=== PATIENT | male | born 1940 | race Caucasian/White ===

== ENCOUNTER 2018-07-02 19:48 | Emergency (ER) | payer MEDICARE, BC, SELFPAY ==
[2018-07-02] VITALS (9 sets, daily range): BP systolic 123–133; BP diastolic 66–70; PULSE 55–62; RESP 15–31; TEMP 37.1; O2SAT 93–96
--- NOTE | 2018-07-02 20:30 | DI.RAD_ITS ---
SYMPTOMS/DIAGNOSIS: LEFT ANKLE PAIN, FEET SWELLING; FEVER, COUGH PA AND LATERAL CHEST: There are no prior comparison exams. The heart size is normal. The aorta is tortuous. A pacemaker is noted. The lungs appear clear. No infiltrate, effusion or pulmonary edema is seen. No thoracic compression fractures are identified. IMPRESSION: No acute abnormality. LEFT ANKLE: There is no evidence of fracture. The talar dome appears intact. There is narrowing of the tibiotalar joint, greater medially, and periarticular spurring. Spurring is also seen at the posterior talocalcaneal joint. No bony erosions are identified. IMPRESSION: Degenerative changes.
--- NOTE | 2018-07-02 20:37 | ED.GENADUL_ITS ---
Discharge Plan Discharge Details Chief Complaint: GenMedical Clinical Impression: Fever, Ankle pain, left Reason For Visit: FEET SWELLING/NOT FEELING GOOD Primary Care Provider: NONE,NONE ED Provider: Uriel Osman Disposition Patient Disposition: HOME Condition: Good Home Meds and New Rx's Prescriptions: Continue atorvastatin [Lipitor] 80 MG tablet 80 mg PO HS RF: 0 candesartan [Atacand] 4 MG tablet 8 mg PO DAILY RF: 0 clopidogrel [Plavix] 75 MG tablet 75 mg PO DAILY RF: 0 metoprolol succinate 25 MG tablet extended release 24 hr 25 mg PO DIRECTED RF: 0 aspirin [Aspir-81] 81 mg Tablet,Delayed Release (Dr/Ec) 81 mg PO DAILY RF: 0 Discharge Instructions Instructions: Fever in Adults (ED) Additional Instructions: You may use Tylenol for pain and fever. Continue your other medications as before. Watch for increasing pain, redness, swelling, warmth to the ankle, confusion, shortness of breath, abdominal pain. Return if any significant changes. Follow-up with primary care in the next few days if you are not feeling better. Referrals: Primary Care Provider [Outside] - 3 days (Follow up with your primary care if not feeling better in the next few days.) Medical Decision Making MDM Narrative Medical decision making narrative: Patient with complaint of left ankle pain, subjective fever, chills. At this time he looks well. His ankle is not significantly swollen. It is not warm or red. Mildly tender to palpation posterior to both malleoli. He is a little decreased active range of motion but normal passive range of motion. His exam is otherwise unremarkable. He ambulated in ok. I doubt that he has a septic joint at this point. Will go ahead and check CBC, chemistries, chest x-ray, urinalysis. Will obtain a left ankle film. Will get blood cultures to complaint of shaking chills a few hours ago. However he looks well at this time. At discharge, patient continues to have no new complaints. Continues to look well. He remains afebrile. Laboratory studies and x-rays were unremarkable. He was given Tylenol for his ankle pain. Will continue Tylenol as needed for pain and fever. Return to ED for increasing pain, swelling, redness, warmth to the ankle, increasing shortness of breath, confusion, abdominal pain, other changes. Otherwise follow-up with primary care in the next few days if not feeling better. Imaging Data Radiologic Study: Imaging: X-Ray (CXR) My impression: negative Radiologist's impression: negative Radiologic Study #2: Imaging: X-Ray (Left Ankle) My impression: arthritis Radiologist's impression: arthritis; mild soft tissue swelling Lab Data Lab results reviewed: Yes I reviewed the patient's lab results. Lab results narrative: There are no significant lab abnormalities. Patient's white count is normal. Urinalysis is negative. HPI - General Adult General Mode of arrival: ambulatory . Date/Time Provider Initiated Documentation: 07/02/18 20:05 . Limitations to Documentation: no limitations . Information obtained by: patient and family . HPI Narrative-FOR DICTATION ONLY HPI Narrative: Patient presents to ED with complaint of fever and chills. Patient reports developing some left ankle pain yesterday without injury. It has bothered him throughout the day but seems to wax and wane in terms of intensity. He is able to still walk on it. This afternoon he started to feel tired and unwell. He developed a subjective fever with some shaking chills. This has subsequently resolved. He has no other symptoms. His was concerned and he came in for evaluation. He has a little bit of a cough but feels like he has been getting over some bronchitis. He denies any type of chest pain or shortness of breath. He denies any urinary symptoms. He denies any GI symptoms or abdominal pain. He denies any rash, myalgias, arthralgias other than left ankle discomfort. Related Data Home Medications Medication Instructions Recorded Confirmed atorvastatin [Lipitor] 80 mg PO HS 09/06/13 07/02/18 candesartan [Atacand] 8 mg PO DAILY 09/06/13 07/02/18 clopidogrel [Plavix] 75 mg PO DAILY 09/06/13 07/02/18 metoprolol succinate 25 mg PO DIRECTED 09/06/13 07/02/18 aspirin [Aspir-81] 81 mg PO DAILY 07/02/18 07/02/18 Allergies Allergy/AdvReac Type Severity Reaction Status Date / Time No Known Allergies Allergy Unverified 07/02/18 20:31 General Stated Complaint: GenMedical YOHAN: 3 Review of Systems Constitutional Reports chills, Reports fever(s) (subjective), Denies headache(s), Reports malaise and Denies weakness ENT Denies otalgia, Denies headache(s), Denies nasal congestion, Denies nasal discharge and Denies sore throat Cardiovascular Denies chest pain, Denies lightheadedness, Denies palpitations and Denies dyspnea Respiratory Reports cough, Denies pain on inspiration, Denies pain with cough, Denies dyspnea and Denies wheezing Gastrointestinal Denies abdominal pain, Denies diarrhea, Denies nausea and Denies vomiting Genitourinary Denies hematuria, Denies difficulty urinating, Denies flank pain and Denies urinary frequency Musculoskeletal Denies back pain, Denies myalgias, Reports arthralgias (left ankle) and Denies numbness Integumentary/Breasts Denies erythema and Denies rash Neurologic Denies confusion, Denies headache(s), Denies focal weakness, Denies numbness and Denies weakness Psychiatric Denies confusion Endocrine Denies palpitations Allergic/Immunologic Denies wheezing PFSH Medical History CAD (coronary artery disease) (Chronic) HTN (hypertension) (Chronic) Hypercholesterolemia (Chronic) Prostate cancer (Chronic) S/P prostatectomy (Chronic) Social History Smoking/Tobacco Use Status: Former Tobacco Use Surgical History AICD (automatic cardioverter/defibrillator) present (Chronic) History of heart artery stent (Chronic) Exam Const General: healthy appearing, comfortable and no acute distress Orientation: alert and oriented x3 HENAZ Head: normocephalic and atraumatic Mouth: moist mucous membranes Neck Neck: supple Resp Effort & Inspection: normal respiratory effort Auscultation: clear to auscultation bilaterally Cardio Rate: regular rate Rhythm: regular rhythm Heart Sounds: S1 normal and S2 normal GI Palpation: soft, no guarding and nontender Back/Spine/Pelvis Back: no CVA tenderness Skin General skin exam: no erythema Rashes: no rashes Neuro General: alert, oriented x3, no focal motor deficits and CN's II-XI intact bilaterally Extrem General: normal exam except as noted Left lower extremity: ankle (left ankle with some tenderness to palpation posterior to malleoli; some decreased active ROM but normal passive ROM); no edema
[2018-07-02 21:13] LABS: Abs Immature Grans 0.02 k/cumm (0.0-0.09); Absolute Basophil Count 0.04 k/cumm (0.0-0.2); Absolute Eosinophil Count 0.24 k/cumm (0.0-0.7); Absolute Lymphocyte Count 1.27 k/cumm (1.2-3.4); Absolute Monocyte Count 1.14 k/cumm (0.11-0.7); Absolute Neutrophil Count 6.02 k/cumm (1.2-6.7); Basophils % 0.5; Eosinophils % 2.7; HCT 46.2 % (40.0-50.0); HGB 15.5 g/dL (13.5-17.5); Immature Grans % 0.2; Lymphocytes % 14.5; Mean Corp. HGB Concentration 33.5 g/dL (32.0-36.0); Mean Corpuscular Hemoglobin 28.8 pg (27.0-33.0); Mean Corpuscular Volume 85.9 fL (80-95); Mean Platelet Volume 10.7 fL (8.0-11.0); Monocytes % 13.1; Platelet Count 165 x1000/uL (130-400); RBC 5.38 m/cumm (4.50-6.00); RBC Distribution Width 14.6 % (11.8-14.1); White Blood Cell Count 8.73 k/cumm (4.4-10.8)
[2018-07-02 21:20] LABS: Bilirubin Negative (Negative); Blood Negative (Negative); Clarity Clear; Glucose Negative (Negative); Ketones Negative (Negative); Leukocyte Esterase Negative (Negative); Nitrite Negative (Negative); Specific Gravity 1.025 (1.005-1.025); Urobilinogen 0.2 EU/dL (Up TO 0.2); pH 5.5 (5-8)
[2018-07-02 21:49] LABS: Albumin 3.2 g/dL (3.4-5.0); BUN 19 mg/dL (7-18); Bilirubin, Total 0.7 mg/dL (0.2-1.0); Calcium 8.7 mg/dL (8.5-10.1); Glucose 115 mg/dL (70-100); Total Protein 6.8 g/dL (6.4-8.2)
[2018-07-02 21:50] LABS: ALT 27 U/L (12-78); AST 15 U/L (15-37); Alkaline Phosphatase 121 U/L (46-116); Anion Gap 6.2 mmol/L (3-11); CO2 26.8 mmol/L (21.0-32.0); Chloride 106 mmol/L (98-107); Magnesium 1.8 mg/dL (1.8-2.4); Potassium 3.6 mmol/L (3.5-5.1); Sodium 139 mmol/L (136-145)
--- NOTE | 2018-07-02 22:13 | DI.VRAD_ITS ---
EXAM: XR Chest, 2 Views EXAM DATE/TIME: 07/02/2018 8:42 PM CLINICAL HISTORY: 78 years old, male; Signs and symptoms; Cough and fever; Prior surgery; Surgery type: Pacemaker; Patient HX: Fever, cough TECHNIQUE: XR of the chest, 2 views. COMPARISON: No relevant prior studies available. FINDINGS: Tubes, catheters and devices: A left transvenous pacemaker device is present. Lungs: Unremarkable. No consolidation. Pleural space: Unremarkable. No pleural effusion. No pneumothorax. Heart/Mediastinum: Cardiac size is normal. Vasculature: Atheromatous plaquing is seen within the aortic arch. Bones/joints: The osseous structures appear diffusely osteoporotic. Marginal osteophytic spurring is noted throughout the thoracic vertebrae. IMPRESSION: No acute pulmonary disease or acute thoracic findings are detected. Dictated and Authenticated by: Govind De Jesus MD. Ordering:IESHA ORTEZ MD
[2018-07-02] MEDS: Acetaminophen 500 MG TAB 1000 MG PO (22:15)
--- NOTE | 2018-07-02 22:15 | DI.VRAD_ITS ---
EXAM: XR Left Ankle Complete, 3 or more Views EXAM DATE/TIME: 07/02/2018 8:42 PM CLINICAL HISTORY: 78 years old, male; Pain; Ankle; Left TECHNIQUE: XR Left ankle 3 or more views. COMPARISON: No relevant prior studies available. FINDINGS: Bones/joints: There is diffuse osteoporosis. Some degenerative arthritis is seen within the ankle mortise. No acute fracture detected. Soft tissues: Mild-moderate soft tissue swelling is seen about the medial and lateral malleolus. Superficial varicosities are seen in the distal medial soft tissues of the lower extremity. IMPRESSION: Suspected mild-moderate soft tissue swelling about the medial and lateral malleolus. Dictated and Authenticated by: Govind De Jesus MD. Ordering:IESHA ORTEZ MD
== END 2018-07-02 20:34 | disposition home or self-care (01) ==
PROVIDERS: Emergency Provider Emergency Medicine
DX: R50.9 Fever, unspecified (principal); M25.572 Pain in left ankle and joints of left foot; I10 Essential (primary) hypertension
CPT/HCPCS: 36410; 80053; 87040; 99284; 71046; 73610; 81003; 83735; 85025; 99285